=== PATIENT | female | born 1935 | race Caucasian/White ===

== ENCOUNTER 2020-01-13 20:22 | Outpatient (CLI) | payer MEDICARE | END 2020-01-13 20:23 | disposition critical access hospital (66) | LOC: EMS 20:22 | PROVIDERS: ATTEND Surgery | DX: R53.1 Weakness (principal); M25.562 Pain in left knee; M25.561 Pain in right knee; M54.5 Low back pain; T69.9XXA Effect of reduced temperature, unspecified, initial encounter; W18.39XA Other fall on same level, initial encounter; Y92.000 Kitchen of unspecified non-institutional (private) residence as the place of occurrence of the external cause; X31.XXXA Exposure to excessive natural cold, initial encounter; Z59.1 Inadequate housing | CPT/HCPCS: A0425; A0429 ==

== ENCOUNTER 2020-01-13 20:37 | Emergency (ER) | payer MEDICARE ==
[2020-01-13 21:10] LABS: BASOPHILS % (AUTO) 0.2 %; EOSINOPHILS % (AUTO) 0.1 %; HGB - HEMOGLOBIN 12.1 g/dL (12.0-16.0); LYMPHOCYTES # (AUTO) 1.5 10^3/uL (1.5-3.5); LYMPHOCYTES % (AUTO) 16.9 %; MEAN CORPUSCULAR HEMOGLOBIN 34.1 pg (27.0-31.0); MEAN CORPUSCULAR VOLUME 100.3 fL (81.0-99.0); MEAN PLATELET VOLUME 10.5 fL (7.9-10.8); MONOCYTES # (AUTO) 0.4 10^3/uL (0.0-1.0); MONOCYTES % (AUTO) 5.1 %; NEUTROPHILS # (AUTO) 6.7 10^3/uL (1.5-6.6); NEUTROPHILS % (AUTO) 77.2 %; PLT - PLATELET COUNT 185 10^3/uL (130-450); RED BLOOD COUNT 3.55 10^6/uL (4.20-5.40); RED CELL DISTRIBUTION WIDTH 13.1 % (12.0-15.0); WHITE BLOOD COUNT 8.6 x10^3/uL (4.8-10.8)
[2020-01-13] MEDS ORDERED: SODIUM CHLORIDE 0.9% 1,000 ML IV STA ×2 (21:11→21:16)
--- NOTE | 2020-01-13 21:18 | ED Physician Documentation ---
History of Present Illness - Stated complaint Stated Complaint: GLF/ KNEE INJ - Chief complaint Chief Complaint: General - History obtained from History obtained from: Patient (limtied due to AMS (questionable reliability)), EMS - History of Present Illness Timing: Today Pain level now: 2 Improved by: rest Worsened by: movement - Additonal information Additional information: BIBA. patient called 911 due to fall and EMS found patient still on floor on phone with 911 when they arrived. Patient says she fell when walking out of her bathroom at home. She says she lost her balance. She c/o low back pain and bilateral knee pain. She is confused, says the year is [birth year] (this is her birthday year, so I asked again for clarification "what year is it right now", and she gives the same answer). Review of Systems Unable to obtain: Confused Musculoskeletal: reports: Back pain, Joint pain Neurologic: denies: Generalized weakness, Focal weakness, Numbness, Headache, Head injury, LOC PD PAST MEDICAL HISTORY - Past Medical History Cardiovascular: Hypertension, High cholesterol, Coronary artery disease Respiratory: COPD, Emphysema Endocrine/Autoimmune: Type 2 diabetes - Past Surgical History Past Surgical History: Yes Cardiovascular: Coronary stent - Present Medications Home Medications: Ambulatory Orders Medication Instructions Recorded Confirmed Atorvastatin Calcium [Lipitor] 10 mg PO 04/22/14 04/22/14 Diltiazem HCl [Diltiazem ER] 120 mg PO 04/22/14 04/22/14 Isosorbide Dinitrate 10 mg PO BID 04/22/14 04/22/14 Levothyroxine Sodium 04/22/14 04/22/14 glipiZIDE [Glucotrol] 04/22/14 04/22/14 lisinopriL [Lisinopril] 04/22/14 04/22/14 metFORMIN [Glucophage] 04/22/14 04/22/14 - Allergies Allergies/Adverse Reactions: Allergies Allergy/AdvReac Type Severity Reaction Status Date / Time No Known Drug Allergies Allergy Verified 01/13/20 20:52 - Social History Does the pt smoke?: Yes Smoking Status: Current every day smoker Does the pt drink ETOH?: Yes Does the pt have substance abuse?: No - POLST Patient has POLST: No PD ED PE NORMAL - Vitals Vital signs reviewed: Yes - General General: No acute distress, Well developed/nourished, Other (AAOx2) - HEENT HEENT: Atraumatic, PERRL, EOMI - Neck Neck: No bony TTP - Respiratory Respiratory: No respiratory distress, Clear bilaterally - Abdomen Abdomen: Soft, Non tender, Non distended - Back Back: No spinal TTP - Derm Derm: Normal color, Warm and dry - Extremities Extremities: No deformity, No tenderness to palpate - Neuro Neuro: No motor deficit, No sensory deficit Eye Opening: Spontaneous Motor: Obeys Commands Verbal: Confused GCS Score: 14 PD ED PE EXPANDED - Cardiac Cardiac: Jose Juan, Murmur Present (3/6 KAREN) - Extremities Extremities: Pedal edema bilateral (2+ bilateral pitting distal to knees), Other (both knees are nontender to palpation and exhibit slow but adequate ROM ) Results - Vitals Vitals: Vital Signs - 24 hr 01/13/20 01/13/20 01/13/20 22:09 22:26 23:22 Temperature 31.6 C L 32.5 C L 33 C L Heart Rate 45 L 48 L Respiratory 39 H 18 Rate Blood Pressure 130/60 136/51 H O2 Saturation 100 100 01/14/20 01/14/20 01/14/20 01:06 01:07 01:34 Temperature 34.8 C L 36.8 C 35.0 C L Heart Rate 59 L 56 L Respiratory 14 12 Rate Blood Pressure 146/118 H 108/46 L O2 Saturation 100 99 01/14/20 01/14/20 01/14/20 02:05 04:30 06:30 Temperature 35.3 C L 37.5 C 36.2 C L Heart Rate 55 L 61 71 Respiratory 13 16 14 Rate Blood Pressure 103/82 H 123/89 H 115/62 O2 Saturation 99 99 99 01/14/20 01/14/20 01/14/20 07:00 07:30 08:00 Temperature 36 C L 36.1 C L Heart Rate 72 73 91 Respiratory 17 15 16 Rate Blood Pressure 117/85 H 124/85 H O2 Saturation 100 100 97 01/14/20 01/14/20 01/14/20 08:30 09:00 09:30 Temperature 36.3 C L 36.4 C L Heart Rate 92 82 82 Respiratory 16 23 25 H Rate Blood Pressure 133/57 H 151/60 H O2 Saturation 96 100 100 Oxygen O2 Source Nasal cannula - EKG (time done) No standard instances Rate: Rate (enter#) (42) Other comments: Other comments (artifact precludes interpretation of rhythm) - Labs Labs: Microbiology 01/13/20 21:20 Blood Culture - Preliminary Blood NO GROWTH AFTER 1 DAY 01/13/20 21:00 Blood Culture - Preliminary Blood NO GROWTH AFTER 1 DAY Laboratory Tests 01/13/20 01/13/20 01/13/20 21:00 21:00 21:00 WBC 8.6 RBC 3.55 L Hgb 12.1 Hct 35.6 L MCV 100.3 H MCH 34.1 H MCHC 34.0 RDW 13.1 Plt Count 185 MPV 10.5 Neut # (Auto) 6.7 H Lymph # (Auto) 1.5 [place] # (Auto) 0.4 Eos # (Auto) 0.0 Baso # (Auto) 0.0 Absolute Nucleated RBC 0.00 Nucleated RBC % 0.0 Sodium 124 L Potassium 5.0 Chloride 85 L Carbon Dioxide 29 Anion Gap 10.0 BUN 15 Creatinine 0.6 Estimated GFR (MDRD) 96 Glucose 147 H Lactic Acid 1.1 Calcium 8.5 Phosphorus Magnesium Total Bilirubin 0.4 AST 57 H ALT 48 Alkaline Phosphatase 80 Total Creatine Kinase 311 H CK-MB (CK-2) Troponin I High Sens Total Protein 6.7 Albumin 3.7 Globulin 3.0 Albumin/Globulin Ratio 1.2 Lipase 37 TSH Urine Color Urine Clarity Urine pH Ur Specific Bim Urine Protein Urine Glucose (UA) Urine Ketones Urine Occult Blood Urine Nitrite Urine Bilirubin Urine Urobilinogen Ur Leukocyte Esterase Urine RBC Urine WBC Ur Squamous Epith Cells Urine Bacteria Ur Microscopic Review Urine Culture Comments Salicylates < 6.0 Acetaminophen < 10 L Ethyl Alcohol < 5.0 01/13/20 01/13/20 01/13/20 21:00 21:02 21:14 WBC RBC Hgb Hct MCV MCH MCHC RDW Plt Count MPV Neut # (Auto) Lymph # (Auto) [place] # (Auto) Eos # (Auto) Baso # (Auto) Absolute Nucleated RBC Nucleated RBC % Sodium Potassium Chloride Carbon Dioxide Anion Gap BUN Creatinine Estimated GFR (MDRD) Glucose Lactic Acid Calcium Phosphorus 3.9 Magnesium 1.7 Total Bilirubin AST ALT Alkaline Phosphatase Total Creatine Kinase CK-MB (CK-2) Troponin I High Sens Total Protein Albumin Globulin Albumin/Globulin Ratio Lipase TSH 2.94 Urine Color YELLOW Urine Clarity CLEAR Urine pH 6.5 Ur Specific Bim 1.020 Urine Protein NEGATIVE Urine Glucose (UA) NEGATIVE Urine Ketones NEGATIVE Urine Occult Blood TRACE-INTA Urine Nitrite NEGATIVE Urine Bilirubin NEGATIVE Urine Urobilinogen 0.2 (NORMAL) Ur Leukocyte Esterase SMALL H Urine RBC 0-5 Urine WBC 4-5 Ur Squamous Epith Cells NONE SEEN Urine Bacteria Many H Ur Microscopic Review INDICATED Urine Culture Comments INDICATED Salicylates Acetaminophen Ethyl Alcohol 01/13/20 01/14/20 01/14/20 21:44 03:29 03:29 WBC RBC Hgb Hct MCV MCH MCHC RDW Plt Count MPV Neut # (Auto) Lymph # (Auto) [place] # (Auto) Eos # (Auto) Baso # (Auto) Absolute Nucleated RBC Nucleated RBC % Sodium 127 L Potassium 4.7 Chloride 89 L Carbon Dioxide 27 Anion Gap 11.0 BUN 11 Creatinine 0.5 Estimated GFR (MDRD) 118 Glucose 75 Lactic Acid Calcium 8.0 L Phosphorus Magnesium Total Bilirubin AST ALT Alkaline Phosphatase Total Creatine Kinase 323 H CK-MB (CK-2) 30.0 H Troponin I High Sens 15.1 H* Total Protein Albumin Globulin Albumin/Globulin Ratio Lipase TSH Urine Color Urine Clarity Urine pH Ur Specific Bim Urine Protein Urine Glucose (UA) Urine Ketones Urine Occult Blood Urine Nitrite Urine Bilirubin Urine Urobilinogen Ur Leukocyte Esterase Urine RBC Urine WBC Ur Squamous Epith Cells Urine Bacteria Ur Microscopic Review Urine Culture Comments Salicylates Acetaminophen Ethyl Alcohol - Rads (name of study) pelvis xray Radiology: Prelim report reviewed, See rad report cxr Radiology: Prelim report reviewed, See rad report CT head Radiology: Prelim report reviewed, See rad report CT A/P with IV/PO contrast Radiology: Prelim report reviewed, See rad report PD MEDICAL DECISION MAKING - ED course Complexity details: reviewed results, re-evaluated patient, considered differential, d/w patient, d/w family ED course: BIBA after reported fall at home, patient tells me she lost her balance. She only c/o low back pain and bilateral knee pain. Denies LOC. EMS report the house she is living in was cluttered. Patient lives alone but has grandson checking in on her. Patient was initially found to be significantly hypothermic but temperature steadily improved with warming blanket and warm IV NS. Also found to be hyponatremic (124) but this improved with the IV saline to 127. Her pelvis xray, which was performed because patient had c/o bony pelvic pain, did not show any acute bony abnormalities but small bowel loops visible, s/o SBO vs ileus and thus CT A/P with IV/PO contrast ordered. The CT A/P interpreted by radiologist as "mild small bowel dilatation is likely an ileus"; furthermore, patient tolerated PO intake and had no c/o nausea and did not have emesis, and she had BM during ED stay. 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 Patient was bradycardic but normotensive, with bradycardia gradually resolving during ED stay. EKG appears to demonstrate atrial fibrillation but she is mostly NSR on cardiac monitoring with occasional episodes of either PAF or frequent PACs on monitor. She was given breakfast and ate the entire tray on her own. I spoke to her daughter by phone (Marilu Mac at [phone]). She says patient's other daughter, Tiffany Bonner, has been patient's main claim professional and after much convincing, the patient recently agreed to move out of her current house so that she could relocate to [facility] to be close to these two sisters so that they can watch her closely and have patient move into new living arrangement (Tiffany Bonner purchased property adjacent to Marilu Mac and has a room set up for patient already). The plan was to drive patient to the new home this past Tuesday but snow precluded this and thus they were going to try again this coming Tuesday. In the meantime, the possibility of the patient's grandson having patient move in with him until Tuesday has been discussed as a possibility. I explained that I would recommend SW get involved to try to secure such a plan or else investigate alternatives, and Ms. Mac agrees with this, asks that Tiffany Bonner be contacted to involve her in whatever arrangement is made. SW evaluated patient in AM and d/w family; plan is discharge to care of grandson who will have patient move in with him until patient is relocated to [facility]. Departure - Departure Disposition: 01 Home, Self Care Clinical Impression: Fall, Ileus, Hypothermia Condition: Stable Instructions: ED Fall Dizziness Weakn Balance, ED Hypothermia Tx, ED Hypot hermia Prevention, ED Aneurysm Abdominal Aortic Stable Discharge Date/Time: 01/14/20 10:00
[2020-01-13 21:24] LABS: BILIRUBIN,URINE NEGATIVE (NEGATIVE); CLARITY,URINE CLEAR (CLEAR); GLUCOSE, URINE (UA) NEGATIVE (NEGATIVE); KETONES,URINE (UA) NEGATIVE (NEGATIVE); LEUKOCYTE ESTERASE, URINE SMALL (NEGATIVE); NITRITE,URINE NEGATIVE (NEGATIVE); OCCULT BLOOD,URINE TRACE-INTA (NEGATIVE); PH,URINE 6.5 PH (5.0-7.5); PROTEIN,URINE NEGATIVE (NEGATIVE); UROBILINOGEN,URINE 0.2 (NORMAL) E.U./dL (NORMAL)
[2020-01-13 21:27] LABS: ACETAMINOPHEN < 10 ug/mL (10-30); ALBUMIN 3.7 g/dL (3.2-5.5); ALBUMIN/GLOBULIN RATIO 1.2 (1.0-2.2); ALKALINE PHOSPHATASE 80 IU/L (42-121); ALT ALANINE AMINOTRANSFERASE 48 IU/L (10-60); AST ASPARTATE AMINOTRANSFERASE 57 IU/L (10-42); BILIRUBIN,TOTAL 0.4 mg/dL (0.2-1.0); BUN - BLOOD UREA NITROGEN 15 mg/dL (6-20); CALCIUM 8.5 mg/dL (8.5-10.3); CARBON DIOXIDE - CO2 29 mmol/L (21-32); CHLORIDE 85 mmol/L (101-111); CK- CREATINE KINASE 311 IU/L (22-269); CREATININE 0.6 mg/dL (0.4-1.0); GLUCOSE 147 mg/dL (70-100); LIPASE 37 U/L (22-51); SALICYLATE < 6.0 mg/dL; SODIUM 124 mmol/L (135-145); TOTAL PROTEIN 6.7 g/dL (6.7-8.2)
[2020-01-13 21:46] LABS: RBC,URINE 0-5 /HPF (0-5)
[2020-01-13 21:47] LABS: BACTERIA,URINE Many /HPF (None Seen); SQUAMOUS EPITHELIAL CELL,UR NONE SEEN (<= Few)
[2020-01-13 21:58] LABS: MAGNESIUM 1.7 mg/dL (1.7-2.8); PHOSPHORUS 3.9 mg/dL (2.5-4.6)
[2020-01-13] MEDS ORDERED: IOVERSOL 320 50 ML VIAL ONE (23:35)
[2020-01-13] MEDS ORDERED: IOVERSOL 320 100 ML VIAL IVP ONE (23:35)
[2020-01-14] MEDS ORDERED: IOVERSOL 320 100 ML VIAL IVP ONE (01:02)
[2020-01-14] MEDS ORDERED: IOVERSOL 320 50 ML VIAL PO ONE (01:04)
[2020-01-14 03:42] LABS: CREATININE 0.5 mg/dL (0.4-1.0)
[2020-01-14] MEDS ORDERED: SODIUM CHLORIDE 0.9% 1,000 ML IV STA (06:40)
--- NOTE | 2020-01-14 08:51 | CT Report ---
PROCEDURE: Abdomen/Pelvis W INDICATIONS: LLQ tenderness, small bowel loops on plain film CONTRAST: IV CONTRAST: Optiray 320 ml: 100 PO CONTRAST: Optiray 320 ml50 TECHNIQUE: After the administration of intravenous and oral contrast, 5 mm thick sections acquired from the diap hragms to the symphysis. 5 mm thick coronal and sagittal reformats were acquired. For radiation dos e reduction, the following was used: automated exposure control, adjustment of mA and/or kV accordin g to patient size. COMPARISON: None. FINDINGS: Image quality: Excellent. ABDOMEN: Lung bases: There are bilateral pleural effusions, small on the right and minimal on the left with as sociated compressive atelectasis in the lower lobes. Heart size is enlarged. There is a small hiatal hernia. Solid organs: Evaluation of the liver demonstrates no focal hepatic lesions. Gallbladder appears wit hin normal limits without calcified gallstones. Biliary system is non dilated. The spleen is normal in size. No peripancreatic fat stranding or pancreatic duct dilatation. There is a small cystic lesio n within the pancreas at the junction of the pancreatic body and tail, measuring up to 1.0 x 0.9 cm. There is also a small cystic lesion within the pancreatic head measuring up to 0.6 x 0.6 cm. No adren al nodules. Kidneys demonstrate no hydronephrosis. Peritoneum and bowel: There is mild dilatation of distal small bowel bowel and proximal colon loops w ith scattered air-fluid levels compatible with a gastroenteritis or ileus. No definite bowel obstruct ion. No pericecal inflammatory changes to suggest appendicitis. Colonic diverticulosis is demonstrate d without acute diverticulitis. There is a short segment of mild colonic wall thickening and nondiste ntion within the mid sigmoid colon. This measures approximately 2.0 cm in length. No free fluid or ai r. Nodes and vessels: No retroperitoneal or mesenteric adenopathy by size criteria. There is a saccular aneurysm of the infrarenal abdominal aorta arising from the left lateral aspect. This measures up to approximately 3.7 cm in anteroposterior dimension and 3.6 cm in length. 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 This measures up to approximately 2.4 cm in length and 1.7 cm in anteroposterior dimension. Th ere is extensive atherosclerotic vascular calcifications along the course of the aorta and its branch vessels. Miscellaneous: No ventral hernias. PELVIS: Genitourinary: There is a Phelps catheter within a decompressed urinary bladder. Miscellaneous: No inguinal hernias or adenopathy. Bones: No suspicious bony lesions. No vertebral body compression fractures. IMPRESSION: 1. Scattered air-fluid levels and mild distention of the distal small bowel and proximal colon compat ible with an ileus or gastroenteritis. 2. Short segment of mild colonic wall thickening and nondistention in the mid sigmoid colon. Although the differential includes a mild localized colitis or peristaltic activity, an intramural mass canno t be excluded. Recommend follow-up evaluation with colonoscopy. 3. Colonic diverticulosis without acute diverticulitis. 4. 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 Follow-up is recommended in 12 months to demonstrate stability if clinical ly indicated. 5. 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 Follow-up is recommended to dem onstrate stability if clinically indicated. 6. Bilateral pleural effusions, small on the right and minimal on the left, with associated compressi ve atelectasis. Reviewed by: Jagdish Beckham MD on 01/14/2020 8:49 AM PST Approved by: Jagdish Beckham MD on 01/14/2020 8:49 AM PST Station ID: [id number]
--- NOTE | 2020-01-14 08:57 | CT Report ---
PROCEDURE: HEAD WO INDICATIONS: Acute altered mental status. TECHNIQUE: Noncontrast 4.5 mm thick angled axial sections acquired from the foramen magnum to the vertex. For r adiation dose reduction, the following was used: automated exposure control, adjustment of mA and/or kV according to patient size. COMPARISON: None. FINDINGS: Image quality: Excellent. CSF spaces: Basal cisterns are patent. No extra-axial fluid collections. Ventricles are normal in size and shape. Brain: No midline shift. No intracranial masses or hemorrhage. Oneill-white matter interface is norm al. Skull and face: Calvarium and visualized facial bones are intact, without suspicious lesions. Sinuses: Mucous retention cyst versus polyp noted in the right maxillary sinus. The mastoids are parker r. IMPRESSION: No acute intracranial disease process. Reviewed by: La Mark MD, PhD on 01/14/2020 8:55 AM PST Approved by: La Mark MD, PhD on 01/14/2020 8:55 AM [facility] Station ID: [id number]
--- NOTE | 2020-01-14 09:00 | XRAY Report ---
PROCEDURE: Chest 2 View X-Ray INDICATIONS: fall, AMS TECHNIQUE: 2 view(s) of the chest. COMPARISON: None. FINDINGS: Surgical changes and devices: None. Lungs and pleura: Small right-sided pleural fluid collection. Patchy opacity in the right lung base w hich could represent atelectasis, aspiration or pneumonia. Mediastinum: Mediastinal contours are normal. Heart size is normal. Bones and chest wall: No suspicious bony abnormalities. Soft tissues appear unremarkable. IMPRESSION: 1. Small right-sided pleural fluid collection. 2. Basilar atelectasis, aspiration or pneumonia. Reviewed by: La Mark MD, PhD on 01/14/2020 8:59 AM PST Approved by: La Mark MD, PhD on 01/14/2020 8:59 AM [facility] Station ID: [id number]
--- NOTE | 2020-01-14 09:02 | XRAY Report ---
PROCEDURE: Pelvis 1 View INDICATIONS: fall, bony pelvic pain TECHNIQUE: 1 view(s) of the pelvis acquired. COMPARISON: None. FINDINGS: Bones: No fractures or dislocations. No suspicious bony lesions. Mild bilateral hip osteoarthritis . Soft tissues: Visualized small bowel loops are mildly dilated up to 4 cm. No suspicious soft tissue c alcifications. IMPRESSION: 1. No fracture. No acute osseous lesion. If there is continued clinical concern for pathology, then r epeat plain film radiographs (7-10 days) or advanced imaging (CT, MR, bone scan) should be considered for further evaluation. 2. Small bowel obstruction versus ileus. Reviewed by: La Mark MD, PhD on 01/14/2020 9:[address] [facility] Approved by: La Mark MD, PhD on 01/14/2020 9:[address] [facility] Station ID: [id number]
[2020-01-14 09:34] VITALS: BP 151/60
== END 2020-01-14 10:00 | disposition home or self-care (01) ==
LOC: EDUNIT# → ED 20:37
DX: T68.XXXA Hypothermia, initial encounter (principal); K56.7 Ileus, unspecified; W19.XXXA Unspecified fall, initial encounter; Y92.002 Bathroom of unspecified non-institutional (private) residence as the place of occurrence of the external cause; J90 Pleural effusion, not elsewhere classified; I71.4 Abdominal aortic aneurysm, without rupture; R41.82 Altered mental status, unspecified; I10 Essential (primary) hypertension; E11.9 Type 2 diabetes mellitus without complications; Z95.5 Presence of coronary angioplasty implant and graft; Z79.84 Long term (current) use of oral hypoglycemic drugs; F17.200 Nicotine dependence, unspecified, uncomplicated
CPT/HCPCS: 36415; 51702; 70450; 71046; 72170; 74177; 80048; 80053; 81001; 82550; 82553; 83605; 83690; 83735; 84100; 84443; 84484; 85025; 87040; 87077; 87086; 87181; 93005; 99283; 99284; Q9967; 80307; 80320; 80329; 81003